=== PATIENT | female | born 1975 | race Caucasian/White ===

== ENCOUNTER 2016-06-02 06:56 | Inpatient (IN) | payer BC ==
[~2016-06-02] VITALS: Ht 167.6 cm; Wt 79.9 kg
[2016-06-02 07:39] LABS: CALCIUM 8.5 mg/dL (8.5-10.1); CARBON DIOXIDE 30.8 mmol/L (21-32); CHLORIDE SERUM 102 mmol/L (98-107); CREATININE SERUM 0.7 mg/dL (0.6-1.0); GFR1 > 60 mL/min; GLUCOSE SERUM 95 mg/dL (74-106); SODIUM SERUM 140 mmol/L (136-145)
[2016-06-02 07:43] LABS: BASOPHIL % 0.3 % (0-2); PLATELET COUNT 353 x10^3mcL (130-400); RED CELL DISTRIBUTION WIDTH 13.6 % (11.5-14.5)
[2016-06-02 07:45] LABS: ALBUMIN 3.7 g/dL (3.4-5.0); ALKALINE PHOSPHATASE 80 U/L (46-116); ALT/SGPT 15 U/L (14-59); AST/SGOT 14 U/L (15-37); BILIRUBIN TOTAL 1.3 mg/dL (0.20-1.00); TOTAL PROTEIN, SERUM 7.1 g/dL (6.4-8.2)
[2016-06-02 08:25] LABS: AMYLASE 56 U/L (25-115); LIPASE 114 IU/L (73-393)
[2016-06-02 08:35] LABS: AMPHETAMINE QUAL UR NONE DETECTED (NEG <=1000)
[2016-06-02] MEDS ORDERED: DOXYCYCLINE HY100 MG PO (09:31)
[2016-06-02 11:06] LABS: CHOLESTEROL/HDL RATIO 1.9
[2016-06-02 11:10] LABS: T3 TOTAL 0.91 ng/mL
[2016-06-02 11:13] VITALS: BP 112/60
[2016-06-02 11:14] LABS: FREE T4 1.06 ng/dL (0.76-1.46); FREE THYROXINE INDEX 2.5 ug/dL (1.4-4.5); T4(THYROXINE) 7.9 ug/dL (4.7-13.3)
[2016-06-02 11:15] LABS: UA SPECIFIC GRAVITY 1.015 (1.005-1.035); microscopic required? YES; urine erythrocyte 2+ (NEGATIVE)
[2016-06-02 21:13] VITALS: BP 108/66
[2016-06-03 05:41] VITALS: BP 103/60
[2016-06-03 09:30] VITALS: BP 99/61
[2016-06-03] MEDS ORDERED: MOT600 PO (10:11)
[2016-06-03 10:47] VITALS: BP 99/61
== END 2016-06-03 12:40 | disposition home or self-care (01) | DRG 205 ==
LOC: ED 06:56 → MU 10:09 → DU 10:09 → MU 06-03 10:23
PROVIDERS: Emergency Medicine; ADMIT Family Medicine
DX: M94.0 Chondrocostal junction syndrome [Tietze] (principal); N17.0 Acute kidney failure with tubular necrosis; N39.0 Urinary tract infection, site not specified; N89.8 Other specified noninflammatory disorders of vagina; K21.9 Gastro-esophageal reflux disease without esophagitis; E80.6 Other disorders of bilirubin metabolism; Z53.29 Procedure and treatment not carried out because of patient's decision for other reasons; R31.9 Hematuria, unspecified; D41.4 Neoplasm of uncertain behavior of bladder; Z82.49 Family history of ischemic heart disease and other diseases of the circulatory system; Z79.899 Other long term (current) drug therapy
CPT/HCPCS: 80307; 83880; 84439; G0480; J7030; Q0092